=== PATIENT | female | born 2000 ===

== ENCOUNTER 2022-03-01 18:12 | Inpatient (IN) | payer OTHER ==
[~2022-03-01] VITALS: Ht 157.5 cm; Wt 4.1 kg
[2022-03-01] MEDS ORDERED: PRENATA CHEWAB1 EACH PO (18:55)
[2022-03-01] MEDS ORDERED: ADULT LOW DOSE81 M1 PO (18:55)
== END 2022-03-05 15:39 | disposition home or self-care (01) | DRG 788 ==
LOC: OB/GYN 18:12 → LDR 18:12 → OB/GYN 03-03 03:00
PROVIDERS: ADMIT Obstetrics & Gynecology; ATTEND Obstetrics & Gynecology
PROC: 3E0DXGC Introduction of Other Therapeutic Substance into Mouth and Pharynx, External Approach (ICD-10-PCS; 2022-03-01)
PROC: 4A1HXCZ Monitoring of Products of Conception, Cardiac Rate, External Approach (ICD-10-PCS; 2022-03-01)
PROC: 10D00Z1 Extraction of Products of Conception, Low, Open Approach (ICD-10-PCS; principal; 2022-03-02 21:30)
DX: O61.0 Failed medical induction of labor (principal); O36.63X0 Maternal care for excessive fetal growth, third trimester, not applicable or unspecified; O33.8 Maternal care for disproportion of other origin; Z3A.39 39 weeks gestation of pregnancy; Z37.0 Single live birth; Z20.822 Contact with and (suspected) exposure to COVID-19

== ENCOUNTER 2022-03-14 14:31 | Outpatient (CLI) | payer OTHER ==
[~2022-03-14 14:31] MED LIST: ADULT LOW DOSE81 M1 PO; PRENATA CHEWAB1 EACH PO
== END 2022-03-14 14:32 | disposition home or self-care (01) ==
LOC: LAB 14:31
PROVIDERS: ATTEND Obstetrics & Gynecology
DX: D50.0 Iron deficiency anemia secondary to blood loss (chronic) (principal)